=== PATIENT | male | born 2000 | race Caucasian/White ===

== ENCOUNTER → 2025-06-04 | Outpatient (CLI) | payer BC ==
--- NOTE | 2025-06-04 09:40 | US ---
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 No nephrolithiasis is seen. No alix s are identified. The urinary bladder is anechoic. IMPRESSION: Unremarkable study [facility] Ashley Estrada, , 06/04/2025 9:38 AM
== END | disposition home or self-care (01) ==
LOC: RADUSWWP 09:09
PROVIDERS: ATTEND Urology
DX: N13.2 Hydronephrosis with renal and ureteral calculous obstruction (principal)
CPT/HCPCS: 76770